=== PATIENT | female | born 1995 | race Caucasian/White ===

== ENCOUNTER 2016-04-17 11:04 | Emergency (ER) | payer MEDICAID ==
[2016-04-17 11:26] VITALS: TEMP 98.4; BMI 28.5
[2016-04-17 11:41] LABS: LEUKOCYTES/URINE 2+ (NEGATIVE); NITRITE/URINE NEG (NEGATIVE); URINE OCCULT BLOOD 1+ (NEG/TRACE)
[2016-04-17 12:32] VITALS: BP 128/67; PULSE 71
--- NOTE | 2016-04-17 12:36 | EDPRACDOC ---
- General Information Chief Complaint: Abdominal Pain Stated Complaint: ABD PAIN Time Seen by Provider: 04/17/16 12:31 Information Source: Patient Mode Of Arrival: Car Home Medications: Home Medications Ciprofloxacin HCl [Cipro] 500 mg PO BID #14 tab 04/17/16 Ketorolac Tromethamine 10 mg PO Q8H PRN #15 tab 04/17/16 Allergies/Adverse Reactions: Allergies Allergy/AdvReac Type Severity Reaction Status Date / Time No Known Allergies Allergy Verified 04/17/16 12:25 - History of Present Illness Onset: YESTERDAY HPI: Pt c/o lower abd pain x 2-3 days with vaginal bleeding. Denies fever, n/v, changes in bowel or bladder, rash. Pt sattes had pain since having IUD place but today pain was worse than normal. Pain Location: Reports: Suprapubic Pain Context: Reports: Spontaneous Pain Severity: Moderate Pain Quality: Reports: Aching, Sharp Pain Radiation: Reports: No Radiation Last Menstrual Period: YESTERDAY : No (iud) Control Method: Reports: IUD Adult Abdominal History: Denies: Urolithiasis, Bowel Obstruction Female Abdominal History: Denies: UTI, Ectopic, PID, Urolithiasis Modifying Factors: improves with: Nothing Female Associated Signs & Symptoms: Reports: Vaginal Bleeding Oral Intake: Normal Urinary Output: Normal ED Past Medical History - History Reviewed Yes Nurses notes reviewed and agree except as marked - Patient Medical History GI/ History: Denies: Urinary Tract Infection - Social Medical History Smoking Status: Never smoker ETOH: None Substance Abuse: None EDM Review of Systems - Review of Systems Constitutional: No Symptoms Reported. negative: Fever, Chills, Weakness, Fatigue, Loss of Appetite Respiratory: No Symptoms Reported. negative: Cough, Brassy Cough, Barky Cough, Shortness of Breath, Wheezing, Hemoptysis Cardiovascular: No Symptoms Reported. negative: Chest Pain, Palpitations, Syncope, Edema, Orthopnea, PND, Skin Mottling, Cyanosis Gastrointestinal: Pain Genitourinary: Bleeding Neurological: No Symptoms Reported. negative: Headache, Dizziness, Seizure, Numbness, Weakness, Speech Difficulty, Gait Difficulty Musculoskeletal: No Symptoms Reported. negative: Neck, Chestwall, Ribs, Back, Shoulder, Arm, Elbow, Forearm, Wrist, Hand, Pelvis, Hip, Femur, Knee, Leg, Ankle , Foot Integumentary: No Symptoms Reported. negative: Itching, Rash, Bruising, Wound Allergic/Immunologic: No Symptoms Reported. negative: Hives, Itching Hematologic: No Symptoms Reported. negative: Lymphadenopathy, Easy Bruising, Easy Bleeding Psychiatric: No Symptoms Reported. negative: Anxiety, Depression, Hallucinations, Insomnia, Suicidal - Physical Exam Constitutional: Alert (Awake), No apparent distress Oriented to: Time, Person, Place Last recorded Vital Signs: Last Vital Signs Temp 98.4 F 04/17/16 11:21 Pulse 71 04/17/16 12:32 Resp 18 04/17/16 12:32 BP 128/67 04/17/16 12:32 Pulse Ox 97 04/17/16 12:32 Oxygen Pulse Oxygen Saturation 97 O2 Device Room Air Oxygen Flow Rate Fraction of Inspired Oxygen ( FIO2) - HEENT Head: Normal ( normocephalic) - Respiratory/Cardiovascular Respiratory: Normal - CTA (BBS clear to auscultation without adventitious sounds ) Cardiovascular: Normal (RRR without murmur, gallop or rub) - GI Auscultation: Normal (NABS) Palpation: Normal (Soft,No rebound or guarding, non distended) Tenderness: Mild, Suprapubic - Bladder: Normal External: Normal Vagina: Discharge Cervix: Discharge, Other (IUD string still in place) - Musculoskeletal Back: Normal (Non-Tender) Extremities: Normal (Normal tone, Pulses 2+ No cyanosis or edema, FROM) - Integumentary Skin: Normal, Warm, Dry Lymphatics: Normal (no adenopathy) - Neurologic Memory Impaired: Normal Motor Function: Normal Mood Description: Normal Perception: Normal - Differential Diagnosis Gastroenteritis, UTI, Other (vaginitis, cervicitis) - Results Urine Color Yellow 04/17/16 11:28 Urine Clarity Sl cldy 04/17/16 11:28 Urine pH 5.0 (5.0-8.0) 04/17/16 11:28 Ur Specific [place] 1.025 (1.003-1.035) 04/17/16 11:28 Urine Protein Neg (NEG/TRACE) 04/17/16 11:28 Urine Glucose (UA) Neg (NEGATIVE) 04/17/16 11:28 Urine Ketones Neg (NEGATIVE) 04/17/16 11:28 Urine Occult Blood 1+ (NEG/TRACE) H 04/17/16 11:28 Urine Nitrite Neg (NEGATIVE) 04/17/16 11:28 Urine Bilirubin Neg (NEGATIVE) 04/17/16 11:28 Urine Urobilinogen <2.0 MG/DL (0-1) 04/17/16 11:28 Ur Leukocyte Esterase 2+ (NEGATIVE) H 04/17/16 11:28 Urine RBC 5-10 (0-5) H 04/17/16 11:28 Urine WBC 5-10 (0-5) H 04/17/16 11:28 Ur Epithelial Cells 3+ 04/17/16 11:28 Urine Bacteria Few (NEG/FEW) 04/17/16 11:28 Urine Mucus Mod (NEG/OCC) H 04/17/16 11:28 Urine Test Neg (NEGATIVE) 04/17/16 11:28 Microbiology 04/17/16 12:48 Trichomonas Wet [place] - Final Vaginal 04/17/16 12:48 YAYA Preparation - Final Vaginal Lab Results 04/17/16 04/17/16 11:28 11:28 Urine Color Yellow Urine Clarity Sl cldy Urine pH 5.0 Ur Specific [place] 1.025 Urine Protein Neg Urine Glucose (UA) Neg Urine Ketones Neg Urine Occult Blood 1+ H Urine Nitrite Neg Urine Bilirubin Neg Urine Urobilinogen <2.0 Ur Leukocyte Esterase 2+ H Urine RBC 5-10 H Urine WBC 5-10 H Ur Epithelial Cells 3+ Urine Bacteria Few Urine Mucus Mod H Urine Test Neg Decision Time to Discharge: 13:03 - Departure Disposition: Home Condition: Good Final Diagnosis: Abdominal pain UTI (urinary tract infection) Qualifiers: Urinary tract infection type: acute cystitis Hematuria presence: with hematuria Qualified Code(s): N30.01 - Acute cystitis with hematuria Instructions: Acute Abdominal Pain (ED), Urinary Tract Infection in Women (ED) , Dysuria Education/Counseling Given To: Patient Education/Counseling Given Regarding: Diagnosis, Treatment, Follow Up Referrals: None,No Provider [Primary Care Provider] - One Week Melva Mancilla DO [Staff Physician] - One Week Prescriptions: Ciprofloxacin HCl [Cipro] 500 mg PO BID #14 tab Ketorolac Tromethamine 10 mg PO Q8H PRN #15 tab PRN Reason: Pain Additional Instructions: Follow up with personal [facility] about IUD evaluation.
[2016-04-20 14:34] LABS: GC BY NUCLEIC ACID AMP Negative (Negative)
[2016-04-20 14:37] LABS: CHLAMY BY NUCLEIC ACID AMP Positive (Negative)
== END 2016-04-17 13:10 | disposition home or self-care (01) ==
LOC: ED 11:04 → EDMC 13:10
DX: N30.01 Acute cystitis with hematuria (principal)
CPT/HCPCS: 81001; 81025; 87210; 87220; 87491; 87591; 99283